=== PATIENT | male | born 1985 | race Caucasian/White ===

== ENCOUNTER 2016-12-14 12:42 | Emergency (ER) | payer OTHER ==
[~2016-12-14] VITALS: Ht 175.2 cm; Wt 86.2 kg
[~2016-12-14 12:42] MED LIST: ALBUTEROL0.09 MG/A2 IH; AMOXICILLIN500 MG PO; AMOXIL500 MG PO; CATAFLAM50 MG PO; CLEOCIN150 MG PO; DARVOCET N 1001 TAB PO; DICLOFENAC POTA50 MG PO; FLEXERIL10 MG PO; HYDROCODONE BIT1 T11 PO; IBU-8800 MG PO; IBU800 M1 PO; MOTRIN600 MG PO; MOTRIN800 MG PO; PEN-VEE K500 MG PO; PREDNICOT20 MG PO; PROAIR HFA0.09 MG/AC IH; ROBITUSSIN AC 110 ML PO; ROBITUSSIN DM 105 ML PO; SUDAFED60 M1 PO; TESSALON PERLE200 MG PO; TORADOL10 MG PO; TYLENOL W/CODEI1 TA2 PO; ULTRAM50 MG PO; VIBRAMYCIN100 MG PO; VICODIN 5/500 505 MG PO; VISTARIL25 M1 PO; ZITHROMAX Z PA250 MG PO; ZITHROMAX250 MG PO; ZYRTEC10 MG PO
[2016-12-14 13:31] LABS: BASO % 0.4 % (0.0-1.0); EOS # 0.1 10*3/uL (0.0-0.4); EOS % 1.3 % (1.0-4.0); HEMATOCRIT 41.8 % (42.0-52.0); LYMPH # 1.5 10*3/uL (1.3-4.4); MEAN CELL VOLUME 88.6 fl (80.0-94.0); MEAN CORPUSCULAR HGB 31.8 pg (27.0-31.0); MEAN CORPUSCULAR HGB CONC 35.9 g/dl (33.0-37.0); MEAN PLATELET VOLUME 9.9 fl (9.6-12.3); MONO # 0.6 10*3/uL (0.1-1.0); MONO % 7.8 % (3.0-9.0); NEUT # 5.9 10*3/uL (2.3-7.9); NEUT % 72.3 % (47.0-73.0); PLATELET COUNT AUTOMATED 217 10*3/uL (130-400); RED BLOOD COUNT 4.72 10*6/uL (4.50-5.90); RED CELL DISTRI WIDTH 11.9 % (0-14.5); WHITE BLOOD COUNT 8.2 10*3/uL (4.8-10.8)
[2016-12-14 13:48] LABS: BILIRUBIN NEGATIVE (NEGATIVE); BLOOD NEGATIVE (NEGATIVE); CLARITY CLEAR (CLEAR); COLOR YELLOW (YELLOW); GLUCOSE NEGATIVE (NEGATIVE); KETONE NEGATIVE (NEGATIVE); LEUKO ESTERASE NEGATIVE (NEGATIVE); NITRITE NEGATIVE (NEGATIVE); PH 5.5 (5.0-9.0); SPECIFIC GRAVITY 1.015 (1.005-1.030); UROBILINOGEN 0.2 E.U./dl (0.2-1.0)
[2016-12-14 13:49] LABS: ALBUMIN 4.1 gm/dl (3.1-4.5); BUN 16 mg/dl (7-24); CHLORIDE 101 mmol/L (98-107); CREATININE 0.88 mg/dL (0.70-1.30); POTASSIUM 4.3 mmol/L (3.5-5.1); SODIUM 135 mmol/L (136-145); TOTAL PROTEIN 8.4 gm/dL (6.4-8.2)
[2016-12-14 13:50] LABS: ALKALINE PHOSPHATASE 80 U/L (45-117); LIPASE 106 U/L (73-393); SGOT/AST 300 IU/L (3-35); SGPT/ALT 530 U/L (12-78)
[2016-12-14] MEDS ORDERED: OYSTER SHELL C1 EAC3 PO (14:00)
== END 2016-12-14 15:33 | disposition home or self-care (01) ==
LOC: ED 12:42
PROVIDERS: Emergency Medicine
DX: E86.0 Dehydration (principal); F17.200 Nicotine dependence, unspecified, uncomplicated

== ENCOUNTER 2017-02-10 05:16 | Emergency (ER) | payer OTHER ==
[~2017-02-10] VITALS: Ht 175.2 cm; Wt 86.2 kg
[~2017-02-10 05:16] MED LIST changes: +OYSTER SHELL C1 EAC3 PO
[2017-02-10] MEDS ORDERED: SUBOXONE 8 MG-1 EACH SL (05:23)
== END 2017-02-10 06:28 | disposition home or self-care (01) ==
LOC: ED 05:16
DX: R05 Cough (principal); F17.200 Nicotine dependence, unspecified, uncomplicated; Z79.899 Other long term (current) drug therapy

== ENCOUNTER 2017-12-06 11:12 | Emergency (ER) | payer OTHER ==
[~2017-12-06] VITALS: Ht 175.2 cm; Wt 82.6 kg
[~2017-12-06 11:12] MED LIST changes: +SUBOXONE 8 MG-1 EACH SL
[2017-12-06] MEDS ORDERED: PROVENTIL HFA6.7 GM INH (11:20)
[2017-12-06] MEDS ORDERED: PREDNISONE50 MG PO (11:20)
== END 2017-12-06 11:24 | disposition home or self-care (01) ==
LOC: ED 11:12
DX: J40 Bronchitis, not specified as acute or chronic (principal); E78.1 Pure hyperglyceridemia; F17.200 Nicotine dependence, unspecified, uncomplicated; Z79.899 Other long term (current) drug therapy

== ENCOUNTER 2018-03-20 20:14 | Emergency (ER) | payer OTHER ==
[~2018-03-20] VITALS: Ht 175.2 cm; Wt 87.1 kg
[~2018-03-20 20:14] MED LIST changes: +PREDNISONE50 MG PO; +PROVENTIL HFA6.7 GM INH
[2018-03-20] MEDS ORDERED: TAMIFLU45 MG PO (21:28)
[2018-03-20] MEDS ORDERED: TAMIFLU 75MG CA75 MG PO (21:29)
== END 2018-03-20 21:43 | disposition home or self-care (01) ==
LOC: ED 20:14
DX: B34.9 Viral infection, unspecified (principal); E78.1 Pure hyperglyceridemia; F17.200 Nicotine dependence, unspecified, uncomplicated; Z79.899 Other long term (current) drug therapy

== ENCOUNTER 2018-04-10 01:34 | Emergency (ER) | payer OTHER ==
[~2018-04-10] VITALS: Ht 175.2 cm; Wt 85.7 kg
[~2018-04-10 01:34] MED LIST changes: +TAMIFLU 75MG CA75 MG PO; +TAMIFLU45 MG PO
[2018-04-10 01:58] LABS: BASO # 0.1 10*3/uL (0.0-0.1); BASO % 0.7 % (0.0-1.0); EOS # 0.2 10*3/uL (0.0-0.4); EOS % 2.7 % (1.0-4.0); HEMATOCRIT 45.4 % (42.0-52.0); HEMOGLOBIN 16.4 g/dl (14.0-18.0); LYMPH # 2.6 10*3/uL (1.3-4.4); LYMPH % 37.5 % (27.0-41.0); MEAN CELL VOLUME 87.1 fl (80.0-94.0); MEAN CORPUSCULAR HGB 31.5 pg (27.0-31.0); MEAN CORPUSCULAR HGB CONC 36.1 g/dl (33.0-37.0); MEAN PLATELET VOLUME 9.9 fl (9.6-12.3); MONO # 0.6 10*3/uL (0.1-1.0); MONO % 9.1 % (3.0-9.0); NEUT # 3.4 10*3/uL (2.3-7.9); NEUT % 49.9 % (47.0-73.0); PLATELET COUNT AUTOMATED 220 10*3/uL (130-400); RED BLOOD COUNT 5.21 10*6/uL (4.50-5.90); RED CELL DISTRI WIDTH 11.8 % (0-14.5); WHITE BLOOD COUNT 6.9 10*3/uL (4.8-10.8)
[2018-04-10 02:19] LABS: ALBUMIN 3.8 gm/dl (3.1-4.5); ALKALINE PHOSPHATASE 75 U/L (45-117); BUN 14 mg/dl (7-24); CHLORIDE 104 mmol/L (98-107); CREATININE 0.91 mg/dL (0.70-1.30); LIPASE 104 U/L (73-393); POTASSIUM 4.1 mmol/L (3.5-5.1); SGOT/AST 118 IU/L (3-35); SGPT/ALT 281 U/L (12-78); SODIUM 141 mmol/L (136-145); TOTAL PROTEIN 8.1 gm/dL (6.4-8.2)
[2018-04-10] MEDS ORDERED: ZOFRAN4 MG PO (02:52)
== END 2018-04-10 02:59 | disposition home or self-care (01) ==
LOC: ED 01:34
PROVIDERS: Emergency Medicine Emergency Medical Services
DX: R11.2 Nausea with vomiting, unspecified (principal); R94.5 Abnormal results of liver function studies; K59.00 Constipation, unspecified; E78.1 Pure hyperglyceridemia; F17.200 Nicotine dependence, unspecified, uncomplicated; Z79.899 Other long term (current) drug therapy

== ENCOUNTER 2018-05-14 15:09 | Emergency (ER) | payer OTHER ==
[~2018-05-14] VITALS: Wt 86.2 kg
--- NOTE | ~2018-05-14 | EKG ---
[place], [place] ELECTROCARDIOGRAM REPORT NAME: MIGUEL JOHNSTON UNIT #: [id number] ROOM: DOCTOR: EPIPHANY DRAFT REPORT BIRTHDATE: [birth year] [facility] Test Date: 2018-05-14 Test Time: 15:46:26 Pat Name: MIGUEL JOHNSTON Department: Room: Gender: Receptionist Telephone Operator: : 1985 Requested By: RICARDO MCMAHON Order Number: [id number] Reading MD: Romeo Puente MD Measurements Intervals [place] Rate: 63 P: 80 PA: 153 QRS: 47 QRSD: 89 T: 45 QT: 390 QTc: 400 Interpretive Statements Sinus rhythm Electronically Signed On 05-18-2018 3:49:27 PDT by Romeo Puente MD CM:EKGRPT:ELECTROCARDIOGRAM REPORT [id number] RICARDO MCMAHON EPIPHANY DRAFT REPORT RICARDO MCMAHON
[~2018-05-14 15:09] MED LIST changes: +ZOFRAN4 MG PO
[2018-05-14 16:05] LABS: BASO % 0.5 % (0.0-1.0); EOS # 0.1 10*3/uL (0.0-0.4); EOS % 1.1 % (1.0-4.0); HEMATOCRIT 44.6 % (42.0-52.0); HEMOGLOBIN 16.2 g/dl (14.0-18.0); LYMPH # 1.4 10*3/uL (1.3-4.4); LYMPH % 21.7 % (27.0-41.0); MEAN CELL VOLUME 87.6 fl (80.0-94.0); MEAN CORPUSCULAR HGB 31.8 pg (27.0-31.0); MEAN CORPUSCULAR HGB CONC 36.3 g/dl (33.0-37.0); MEAN PLATELET VOLUME 9.9 fl (9.6-12.3); MONO # 0.5 10*3/uL (0.1-1.0); MONO % 6.8 % (3.0-9.0); NEUT # 4.7 10*3/uL (2.3-7.9); NEUT % 69.7 % (47.0-73.0); PLATELET COUNT AUTOMATED 218 10*3/uL (130-400); RED BLOOD COUNT 5.09 10*6/uL (4.50-5.90); RED CELL DISTRI WIDTH 12.1 % (0-14.5); WHITE BLOOD COUNT 6.7 10*3/uL (4.8-10.8)
[2018-05-14 16:22] LABS: ALBUMIN 4.1 gm/dl (3.1-4.5); ALKALINE PHOSPHATASE 68 U/L (45-117); BUN 16 mg/dl (7-24); CHLORIDE 106 mmol/L (98-107); CREATININE 0.85 mg/dL (0.70-1.30); LIPASE 85 U/L (73-393); POTASSIUM 3.9 mmol/L (3.5-5.1); SGOT/AST 96 IU/L (3-35); SGPT/ALT 208 U/L (12-78); SODIUM 140 mmol/L (136-145); TOTAL PROTEIN 8.2 gm/dL (6.4-8.2)
[2018-05-14 16:28] LABS: TROPONIN I < 0.015 ng/ml (<0.045)
== END 2018-05-14 18:40 | disposition home or self-care (01) ==
LOC: ED 15:09
PROVIDERS: Nurse Practitioner Family
DX: J06.9 Acute upper respiratory infection, unspecified (principal); E78.1 Pure hyperglyceridemia; F17.200 Nicotine dependence, unspecified, uncomplicated; Z79.899 Other long term (current) drug therapy

== ENCOUNTER → 2019-03-31 | Outpatient (CLI) | payer OTHER ==
[2019-03-31 10:31] LABS: BASO % 0.5 % (0.0-1.0); EOS # 0.4 10*3/uL (0.0-0.4); EOS % 4.6 % (1.0-4.0); HEMATOCRIT 45.6 % (42.0-52.0); HEMOGLOBIN 16.3 g/dl (14.0-18.0); LYMPH # 3.3 10*3/uL (1.3-4.4); LYMPH % 40.9 % (27.0-41.0); MEAN CELL VOLUME 90.1 fl (80.0-94.0); MEAN CORPUSCULAR HGB 32.2 pg (27.0-31.0); MEAN CORPUSCULAR HGB CONC 35.7 g/dl (33.0-37.0); MEAN PLATELET VOLUME 10.4 fl (9.6-12.3); MONO # 0.7 10*3/uL (0.1-1.0); MONO % 8.1 % (3.0-9.0); NEUT # 3.6 10*3/uL (2.3-7.9); NEUT % 45.5 % (47.0-73.0); PLATELET COUNT AUTOMATED 228 10*3/uL (130-400); RED BLOOD COUNT 5.06 10*6/uL (4.50-5.90); RED CELL DISTRI WIDTH 11.9 % (0-14.5)
[2019-03-31 10:58] LABS: ALKALINE PHOSPHATASE 60 U/L (45-117); BILIRUBIN, DIRECT 0.2 mg/dL (0.0-0.2); BUN 15 mg/dl (7-24); CHLORIDE 105 mmol/L (98-107); CREATININE 0.95 mg/dL (0.70-1.30); SGOT/AST 30 IU/L (3-35); SGPT/ALT 37 U/L (12-78); SODIUM 140 mmol/L (136-145); TOTAL PROTEIN 7.8 gm/dL (6.4-8.2)
[2019-04-02 00:04] LABS: HBV HBV DNA not detected IU/mL (.)
== END ==
LOC: LAB 09:43
PROVIDERS: Internal Medicine Gastroenterology
DX: B19.20 Unspecified viral hepatitis C without hepatic coma (principal)

== ENCOUNTER 2023-05-09 02:57 | Emergency (ER) | payer OTHER ==
[~2023-05-09] VITALS: Ht 177.8 cm; Wt 81.6 kg
[2023-05-09] MEDS ORDERED: Bacitracin Zinc 14 GM TUBE T ONE (03:30)
[2023-05-10] MEDS ORDERED: ONDANSETRON4 MG SL (12:50)
== END 2023-05-09 03:46 | disposition home or self-care (01) ==
LOC: ED 02:57
DX: S01.01XA Laceration without foreign body of scalp, initial encounter (principal); F41.9 Anxiety disorder, unspecified; F17.200 Nicotine dependence, unspecified, uncomplicated; W22.8XXA Striking against or struck by other objects, initial encounter; Y93.89 Activity, other specified; Y92.89 Other specified places as the place of occurrence of the external cause; Y99.0 Civilian activity done for income or pay

== ENCOUNTER 2023-05-10 12:25 | Emergency (ER) | payer OTHER ==
[~2023-05-10] VITALS: Ht 175.2 cm; Wt 83.9 kg
[2023-05-10] MEDS ORDERED: Meclizine Hydrochloride 25 MG TAB PO ONE (12:50)
[2023-05-10] MEDS ORDERED: Ondansetron Hydrochloride 4 MG TAB PO ONE (12:50)
[2023-05-10] MEDS ORDERED: ONDANSETRON4 MG SL (12:50)
== END 2023-05-10 13:49 | disposition home or self-care (01) ==
LOC: ED 12:25
DX: S09.8XXD Other specified injuries of head, subsequent encounter (principal); R42 Dizziness and giddiness; R11.0 Nausea; F41.9 Anxiety disorder, unspecified; F17.200 Nicotine dependence, unspecified, uncomplicated; W22.8XXD Striking against or struck by other objects, subsequent encounter